=== PATIENT | male | born 1985 | race Caucasian/White ===

== ENCOUNTER 2016-10-10 15:52 | Emergency (ER) | payer SELFPAY ==
[~2016-10-10] VITALS: Ht 193 cm; Wt 90.7 kg
[~2016-10-10 15:52] MED LIST: NKM
[2016-10-10] MEDS ORDERED: ZOFRAN4 M3 ORAL (17:09)
[2016-10-10] MEDS ORDERED: TYLENOL EXTRA500 MG ORAL (17:09)
[2016-10-10 17:28] VITALS: BP 140/71
[2016-10-10 17:30] VITALS: BP 140/71
--- NOTE | 2016-10-11 12:50 | Emergency Room Report ---
History of Present Illness General Chief Complaint: Head Injury Source: Patient Present Illness HPI The patient is a 30-year-old male presenting after head injury. He states that he was at the gym and a metal bar hit the back of his head. He denies loss of consciousness but does admit to nausea and a feeling of dizziness. Pain is described as a 4-10 dull ache to the back of the head and does not radiate. He states that he is unable to think as quickly as usual. Worse with touch. He denies other symptoms including vomiting, blurred vision, neck pain, shortness of breath Allergies: Coded Allergies: No Known Allergies (Unverified , 10/10/16) Patient History Past Medical History: see triage record Pertinent Family History: none Reviewed Nursing Documentation: PMH: Agreed, PSxH: Agreed Nursing Documentation-PMH Past Medical History: No Stated History Review of Systems All Other Systems: negative except mentioned in HPI Physical Exam Vital Signs Date Time Temp Pulse Resp B/P Pulse Ox O2 Delivery O2 Flow Rate FiO2 10/10/16 15:48 97.9 86 18 143/75 97 Room Air Sp02 EP Interpretation: reviewed, normal General Appearance: no apparent distress, alert, GCS 15, non-toxic Head: normocephalic, other - hematoma to posterior scalp Eyes: bilateral eye PERRL, bilateral eye normal inspection ENT: hearing grossly normal, normal pharynx, no angioedema, normal voice Neck: full range of motion, no bony tend, supple/symm/no masses, tender lateral - proximal cervical paraspinal muscles Medical Decision Making PA Attestation Dr. Thibodeaux is my supervising physician. Patient management was discussed with my supervising physician Diagnostic Impression: Primary Impression: Scalp contusion Qualified Codes: S00.03XA - Contusion of scalp, initial encounter Additional Impression: Concussion Qualified Codes: S06.0X0A - Concussion without loss of consciousness, initial encounter ER Course The patient is a 30-year-old male presenting after head injury. Differential diagnoses considered but not limited to: Concussion, contusion, intracranial hemorrhage, fracture, among others Physical exam: No apparent distress A&OX4 Head is normocephalic. There is a slight hematoma to the posterior scalp. No depression or crepitus. PERRL Neck is soft and supple. No midline tenderness No imaging is needed at this time. Patient is diagnosed with concussion clinically. He will followup with primary doctor and is given prescription for antiemetic and pain medications. ER precautions given Last Vital Signs Date Time Temp Pulse Resp B/P Pulse Ox O2 Delivery O2 Flow Rate FiO2 10/10/16 17:30 97.9 72 18 140/71 97 Room Air Status: improved Disposition: HOME, SELF-CARE Condition: Improved Scripts Ondansetron* (ZOFRAN*) 4 Mg Tablet 4 MG ORAL Q6H Y for Nausea & Vomiting, #20 TAB Prov: NAVIN MCKEON 10/10/16 Acetaminophen* (TYLENOL EXTRA STRENGTH*) 500 Mg Tablet 500 MG ORAL Q8H Y for Prn Headache/Temp > 101, #30 TAB 0 Refills Prov: NAVIN MCKEON 10/10/16 Referrals: NOT CHOSEN IPA/,REFERRING (PCP) Patient Instructions: Facial or Scalp Contusion, Concussion, Adult Additional Instructions: I discussed my findings with the patient. All questions and concerns have been answered. Treatment and medication compliance have been addressed. I advised the patient that they need to follow up with PMD in 3-5 days. Return to ED if symptoms worsen, new symptoms arise, or if needed for any reason. Patient verbalized understanding of discharge instructions. NAVIN MCKEON Oct 11, 2016 12:50
== END 2016-10-10 17:35 | disposition home or self-care (01) ==
LOC: EDBD 15:52 → EMR 16:23
DX: S00.03XA Contusion of scalp, initial encounter (principal); S06.0X0A Concussion without loss of consciousness, initial encounter; W22.8XXA Striking against or struck by other objects, initial encounter; Y93.9 Activity, unspecified; Y92.39 Other specified sports and athletic area as the place of occurrence of the external cause
CPT/HCPCS: 99284